=== PATIENT | male | born 1995 | race Caucasian/White ===

== ENCOUNTER 2021-04-12 16:12 | Emergency (ER) | payer OTHER ==
[2021-04-12 16:20] VITALS: BP 144/87; PULSE 98; TEMP 98.2; BMI 35.9
[2021-04-12] MEDS ORDERED: KETOROLAC TROMETHAMINE 30 MG/1 ML VIAL IM ONE (16:46)
== END 2021-04-12 17:20 | disposition home or self-care (01) ==
LOC: JER 16:12
PROC: 3E0233Z Introduction of Anti-inflammatory into Muscle, Percutaneous Approach (ICD-10-PCS; principal; 2021-04-12)
DX: M25.561 Pain in right knee (principal)
CPT/HCPCS: 73562-TC-RT-FY; 99284-25